=== PATIENT | male | born 1985 | race Caucasian/White ===

== ENCOUNTER 2018-06-01 01:42 | Emergency (ER) | payer BC ==
[2018-06-01 01:51] VITALS: TEMP 98.4
[2018-06-01] MEDS ORDERED: CYCLOBENZAPRINE 10 MG TAB PO STA (02:12)
[2018-06-01] MEDS ORDERED: IBUPROFEN 800 MG TAB PO STA (02:12)
--- NOTE | 2018-06-01 02:16 | ED ---
Lower Extremity Injury HPI - General Source: patient, RN notes reviewed Mode of arrival: ambulatory Limitations: no limitations <Jimbo Motta - Last Filed: 06/01/18 03:03> <Frida Chun - Last Filed: 06/01/18 23:04> - General Chief Complaint: Extremity Injury, Lower Stated Complaint: Rt Hip Pain Time Seen by Provider: 06/01/18 02:03 - History of Present Illness Initial Comments: 33-year-old male presents emergency Department chief complaint of right hip, groin pain. Patient states that it started last 24 hours she states initially felt like he had a cramp in his groin and states that it seemed to tighten up. Patient states that has progressively gotten worse she states that taking Excedrin and other [id number] pain relievers and did help but states that it worsened after he had been working all day and sat in the vehicle and states that with any movement especially flexion of the hip increases the pain. He states even laying flat or bending forward he feels discomfort. Patient denies any leg swelling, dramatic injury. He did admit that he had a right ankle injury and was diagnosed ligamentous injury. Patient denies any calf pain, abdominal pain, dysuria, hematuria, nausea vomiting. (Jimbo Motta) - Related Data Home Medications Medication Instructions Recorded Confirmed Dextroamphetamine/Amphetamine 30 mg PO DAILY 06/01/18 06/01/18 [Adderall] Previous Rx's Medication Instructions Recorded Cyclobenzaprine [Flexeril] 10 mg PO TID PRN #15 tab 06/01/18 Ibuprofen [Motrin] 600 mg PO Q8HR PRN #30 tab 06/01/18 Allergies Allergy/AdvReac Type Severity Reaction Status Date / Time levofloxacin [From Levaquin] Allergy Rash/Hives Verified 06/01/18 01:52 Review of Systems ROS Other: All systems not noted in ROS Statement are negative. <Jimbo Motta - Last Filed: 06/01/18 03:03> ROS Other: All systems not noted in ROS Statement are negative. <Frida Chun - Last Filed: 06/01/18 23:04> ROS Statement: Those systems with pertinent positive or pertinent negative responses have been documented in the HPI. Past Medical History Past Medical History: No Reported History History of Any Multi-Drug Resistant Organisms: None Reported Past Surgical History: No Surgical Hx Reported Past Psychological History: ADD/ADHD Smoking Status: Current every day smoker Past Alcohol Use History: Occasional Past Drug Use History: None Reported <Jimbo Motta - Last Filed: 06/01/18 03:03> General Exam Limitations: no limitations General appearance: alert, in no apparent distress Neck exam: Present: normal inspection. Absent: tenderness, meningismus, lymphadenopathy Respiratory exam: Present: normal lung sounds bilaterally. Absent: respiratory distress, wheezes, rales, rhonchi, stridor Cardiovascular Exam: Present: regular rate, normal rhythm, normal heart sounds. Absent: systolic murmur, diastolic murmur, rubs, gallop, clicks GI/Abdominal exam: Present: soft, normal bowel sounds. Absent: distended, tenderness, guarding, rebound, rigid Extremities exam: Present: other (Pain with right hip flexion, range of motion of the right hip right leg neurovascular intact, there is no erythema no rashes no tenderness below the right hip.) Skin exam: Present: warm, dry, intact, normal color. Absent: rash <Jimbo Motta - Last Filed: 06/01/18 03:03> Vital Signs 06/01/18 06/01/18 01:46 03:23 Temperature 98.4 F Pulse Rate 109 H 96 Respiratory 20 16 Rate Blood Pressure 129/71 114/60 O2 Sat by Pulse 99 96 Oximetry Medical Decision Making <Jimbo Motta - Last Filed: 06/01/18 03:03> <Frida Chun - Last Filed: 06/01/18 23:04> - Medical Decision Making 33-year-old male presents emergency Department chief complaint of right hip pain. Patient's pain is an anterior hip region consistent with a hip flexor injury. Patient did have x-rays which is negative for acute abnormality. Patient is neurovascular intact. Patient is advised to do gentle stretches, apply heat and ice and take medications as directed return parameters were discussed. (Jimbo Motta) I personally saw and examined the patient. I reviewed and agree with the mid- level provider findings including all diagnostic interpretations and treatment plans as written unless otherwise stated. I was present for pink portions of any procedures performed. (Frida Chun) Disposition Is patient prescribed a controlled substance at d/c from ED?: No Time of Disposition: :05 <Jimbo Motta M - Last Filed: 06/01/18 03:03> <Frida Chun P - Last Filed: 06/01/18 23:04> Clinical Impression: Strain of flexor muscle of right hip Disposition: HOME SELF-CARE Condition: Stable Instructions: Hip Sprain (ED) Additional Instructions: Please return to the Emergency Department if symptoms worsen or any other concerns. Prescriptions: Cyclobenzaprine [Flexeril] 10 mg PO TID PRN #15 tab PRN Reason: Muscle Spasm Ibuprofen [Motrin] 600 mg PO Q8HR PRN #30 tab PRN Reason: Pain Referrals: Stanford Yu DO [Primary Care Provider] - 1-2 days Raj Mariscal DO [Doctor of Osteopathic Medicine] - 1-2 days
--- NOTE | 2018-06-01 02:43 | XR ---
EXAMINATION TYPE: XR Hip RT and AP Pelvis DATE OF EXAM: 06/01/2018 COMPARISON: NONE HISTORY: Hip pain TECHNIQUE: A single AP view of the pelvis is obtained. Two views of the right hip are obtained. FINDINGS: The pelvic ring is intact. Proximal femurs and hip joints are intact. There is no sign of h ip dysplasia. Hip joint spaces are normal. Sacroiliac joints appear normal. IMPRESSION: Negative pelvis and right hip exam.
[2018-06-01] MEDS ORDERED: ACET/COD 300 MG/30 MG STARTER PACK 6 TAB BTL PO STA (03:05)
[2018-06-01 03:24] VITALS: BP 114/60; PULSE 96; RESP 16
== END 2018-06-01 03:29 | disposition home or self-care (01) ==
LOC: EC 01:42
DX: S76.011A Strain of muscle, fascia and tendon of right hip, initial encounter (principal); F90.9 Attention-deficit hyperactivity disorder, unspecified type; F17.200 Nicotine dependence, unspecified, uncomplicated; Z79.899 Other long term (current) drug therapy; Z88.1 Allergy status to other antibiotic agents; X50.1XXA Overexertion from prolonged static or awkward postures, initial encounter
CPT/HCPCS: 73502; 99283

== ENCOUNTER 2022-06-12 07:13 | Emergency (ER) | payer BC, OTHER ==
[2022-06-12 07:25] VITALS: TEMP 98.2
[2022-06-12] MEDS ORDERED: KETOROLAC 15 MG/ML 1 ML VIAL IM STA (07:32)
[2022-06-12] MEDS ORDERED: ACETAMINOPHEN TAB 500 MG TAB PO STA (07:35)
--- NOTE | 2022-06-12 07:39 | ED ---
Upper Extremity HPI - General Chief Complaint: Extremity Injury, Upper Stated Complaint: lt hand injury Time Seen by Provider: 06/12/22 07:29 Source: patient, RN notes reviewed, old records reviewed Mode of arrival: ambulatory Limitations: no limitations - History of Present Illness Initial Comments: Well-appearing 37-year-old male presents to the emergency room with complaints of left thumb pain. Patient states started last night, worse when he woke up and is now having increased pain with movement. Denies any injury. He is right hand dominant. States he did have a fracture of the growth plate in that hand in the past. Denies any fevers. Did not take any Tylenol or Motrin prior to arrival. MD Complaint: Injury to:: left, finger (thumb thenar surface) -: days(s) (1) Handedness: right Severity scale (1-10): 8 Improves With: immobilization Worsens With: movement of extremity Associated Symptoms: denies other symptoms - Related Data Home Medications Medication Instructions Recorded Confirmed Dextroamphetamine/Amphetamine 30 mg PO DAILY 06/01/18 06/01/18 [Adderall] Previous Rx's Medication Instructions Recorded Cyclobenzaprine [Flexeril] 10 mg PO TID PRN #15 tab 06/01/18 Ibuprofen [Motrin] 600 mg PO Q8HR PRN #30 tab 06/01/18 Ibuprofen [Motrin] 800 mg PO Q6HR #30 tab 06/12/22 Allergies Allergy/AdvReac Type Severity Reaction Status Date / Time levofloxacin [From Levaquin] Allergy Rash/Hives Verified 06/12/22 07:25 Review of Systems ROS Statement: Those systems with pertinent positive or pertinent negative responses have been documented in the HPI. ROS Other: All systems not noted in ROS Statement are negative. Past Medical History Past Medical History: No Reported History History of Any Multi-Drug Resistant Organisms: None Reported Past Surgical History: No Surgical Hx Reported Past Psychological History: ADD/ADHD Smoking Status: Current every day smoker Past Alcohol Use History: Occasional Past Drug Use History: None Reported General Exam Limitations: no limitations General appearance: alert, in no apparent distress Head exam: Present: atraumatic Respiratory exam: Absent: respiratory distress, accessory muscle use Cardiovascular Exam: Present: regular rate Left Hand Wrist exam: Present: tenderness, swelling. Absent: abrasion, laceration, ecchymosis, deformity, crepitus, dislocation, erythema, amputation, nail avulsion Neuro motor exam: Present: thumb IP flexion intact, thumb adduction intact (Patient complains of pain with flexion and abduction; difficulty touching thumb to fourth and fifth digits), fingers 2-5 abduction intact Vascular: Present: normal capillary refill, radial pulse. Absent: vascular compromise Neurological exam: Present: alert, oriented X3, normal gait Psychiatric exam: Present: normal affect, normal mood Skin exam: Present: warm, dry, normal color. Absent: cyanosis, diaphoretic, petechiae, pallor Course Vital Signs 06/12/22 06/12/22 07:23 08:54 Temperature 98.2 F Pulse Rate 93 90 Respiratory 20 15 Rate Blood Pressure 120/56 128/76 O2 Sat by Pulse 99 100 Oximetry Medical Decision Making - Medical Decision Making Patient texting on phone upon arrival to the emergency room with both thumbs. X-ray shows no fracture or dislocation. Joint spaces are within normal limits. Overlying soft tissue unremarkable. Patient is right hand dominant. Left thumb pain with flexion and palpation of the thenar surface. Patient denies any trauma. There is no sign of erythema or bruising . This is likely a thumb strain from repetitive use. He was instructed to take Tylenol and Motrin for pain, ice and immobilize thumb for the next 48 hours. Luis wrap was provided. Instructed to follow-up with his primary care doctor within the next week for continuation of care Case discussed with Dr. Quarles. Disposition Clinical Impression: Strain of thumb, left Disposition: HOME SELF-CARE Condition: Good Additional Instructions: Rest thumb for next 48 hours. Luis wrap and elevate hand above your heart to decrease any swelling. Tylenol and or Motrin as needed for pain. Follow-up with your primary care doctor within the next week. Return if any new or concerning symptoms. Prescriptions: Ibuprofen [Motrin] 800 mg PO Q6HR #30 tab Is patient prescribed a controlled substance at d/c from ED?: No Referrals: Stanford Yu DO [Primary Care Provider] - 1-2 days Time of Disposition: 08:29
--- NOTE | 2022-06-12 08:08 | XR ---
EXAMINATION TYPE: XR hand limited LT DATE OF EXAM: 06/12/2022 CLINICAL HISTORY: pain TECHNIQUE: Frontal, lateral images of the left hand are obtained. COMPARISON: None. FINDINGS: There is no acute fracture/dislocation evident. The joint spaces appear within normal limi ts. The overlying soft tissue appears unremarkable. IMPRESSION: There is no acute fracture or dislocation. ICD 10 NO FRACTURE, INITIAL EVALUATION
[2022-06-12 08:55] VITALS: BP 128/76; PULSE 90; RESP 15
== END 2022-06-12 08:56 | disposition home or self-care (01) ==
LOC: EC 07:13
DX: S63.602A Unspecified sprain of left thumb, initial encounter (principal); F17.200 Nicotine dependence, unspecified, uncomplicated; Z88.1 Allergy status to other antibiotic agents; X58.XXXA Exposure to other specified factors, initial encounter
CPT/HCPCS: 73120; 99283; 96372; J1885

== ENCOUNTER 2024-10-10 09:53 | Emergency (ER) | payer OTHER ==
--- NOTE | 2024-10-10 10:10 | ED ---
Chest Pain HPI - General Chief Complaint: Chest Pain Stated Complaint: [facility]-Chest pain,SOB Time Seen by Provider: 10/10/24 10:02 Source: patient, RN notes reviewed Mode of arrival: ambulatory Limitations: no limitations - History of Present Illness Initial Comments: This is a 39-year-old male presenting with sudden onset of chest pain x 30 minutes ago. 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 Patient states symptoms resolved spontaneously 1 to 2 minutes later with no ongoing pain, dyspnea or dizziness. Patient denies cardiac history, asthma or history of hypertension/hypercholesterolemia. Patient is a current smoker with BMI of 35.0. MD Complaint: chest pain Onset/Timin -: minutes(s) Onset: during exertion Pain Location: left chest Pain Radiation: LUE, back Quality: tightness Consistency: now resolved Improves With: rest Anginal Symptoms: dyspnea Treatments Prior to Arrival: none - Related Data Home Medications Medication Instructions Recorded Confirmed Dextroamphetamine/Amphetamine 20 mg PO BID 10/10/24 10/10/24 [Adderall] Allergies Allergy/AdvReac Type Severity Reaction Status Date / Time levofloxacin [From Levaquin] Allergy Rash/Hives Verified 10/10/24 11:58 Review of Systems ROS Statement: Those systems with pertinent positive or pertinent negative responses have been documented in the HPI. ROS Other: All systems not noted in ROS Statement are negative. Past Medical History Past Medical History: No Reported History History of Any Multi-Drug Resistant Organisms: None Reported Past Surgical History: No Surgical Hx Reported Past Psychological History: ADD/ADHD Smoking Status: Former smoker Past Alcohol Use History: Occasional Past Drug Use History: None Reported General Exam Limitations: no limitations General appearance: alert, in no apparent distress Head exam: Present: atraumatic, normocephalic, normal inspection Eye exam: Present: normal appearance, PERRL, EOMI. Absent: scleral icterus, conjunctival injection, periorbital swelling ENT exam: Present: normal exam, mucous membranes moist Neck exam: Present: normal inspection. Absent: tenderness, meningismus, lymphadenopathy Respiratory exam: Present: wheezes, prolonged expiratory. Absent: respiratory distress, rales, rhonchi, stridor Cardiovascular Exam: Present: regular rate, normal rhythm, normal heart sounds. Absent: systolic murmur, diastolic murmur, rubs, gallop, clicks GI/Abdominal exam: Present: soft, normal bowel sounds. Absent: distended, tenderness, guarding, rebound, rigid Extremities exam: Present: normal inspection, full ROM, normal capillary refill. Absent: tenderness, pedal edema, joint swelling, calf tenderness Back exam: Present: normal inspection Neurological exam: Present: alert, oriented X3, CN II-XII intact Psychiatric exam: Present: normal affect, normal mood Skin exam: Present: warm, dry, intact, normal color. Absent: rash Course Vital Signs 10/10/24 10/10/24 10/10/24 09:54 10:12 11:00 Temperature 97.6 F Pulse Rate 94 90 79 Respiratory 20 18 18 Rate Blood Pressure 149/86 140/90 132/77 O2 Sat by Pulse 97 95 98 Oximetry 10/10/24 10/10/24 10/10/24 11:16 11:24 11:30 Temperature Pulse Rate 78 80 77 Respiratory 18 Rate Blood Pressure 120/68 O2 Sat by Pulse 96 Oximetry 10/10/24 10/10/24 10/10/24 12:00 12:30 13:00 Temperature Pulse Rate 83 85 89 Respiratory 17 16 18 Rate Blood Pressure 126/70 125/75 120/73 O2 Sat by Pulse 97 98 97 Oximetry Chest Pain MDM - MDM Was pt. sent in by a medical professional or institution (LEANDRO Ca, CLERK RATING, urgent care, hospital, or prison...) When possible be specific @ -[No] Did you speak to anyone other than the patient for history (EMS, parent, family, police, friend...)? What history was obtained from this source @ -[No] Did you review nursing and triage notes (agree or disagree)? Why? @ -[I reviewed and agree with nursing and triage notes] Were old charts reviewed (outside hosp., previous admission, EMS record, old EKG, old radiological studies, urgent care reports/EKG's, prison records)? Report findings @ -[No old charts were reviewed] Differential Diagnosis (chest pain, altered mental status, abdominal pain women, abdominal pain men, vaginal bleeding, weakness, fever, dyspnea, syncope, headache, dizziness, GI bleed, back pain, seizure, CVA, palpatations, mental health, musculoskeletal)? @ -Differential Chest Pain: Stable Angina, Unstable Angina, STEMI, NSTEMI Aortic Dissection, Pneumothorax, Musculoskeletal, Esophageal Spasm GERD, Cholecystitis, Pancreatitis, Zoster, this is not meant to be an all-inclusive list. EKG interpreted by me (3pts min.). @ -Sinus rhythm without ST deviation or T wave inversion. Ventricular rate 89 bpm, JAMIL 147 ms, QRS duration 97 ms, QTc 385 ms. X-rays interpreted by me (1pt min.). @ -CXR shows no acute cardiopulmonary process CT interpreted by me (1pt min.). @ -[None done] U/S interpreted by me (1pt. min.). @ -[None done] What testing was considered but not performed or refused? (CT, X-rays, U/S, labs)? Why? @ -[None] What meds were considered but not given or refused? Why? @ -[None] Did you discuss the management of the patient with other professionals (professionals i.e. , PA, CLERK RATING, lab, RT, psych nurse, social contact worker, burner shaft, teacher, airframe technical officer, field nurse case manager)? Give summary @ -[No] Was smoking cessation discussed for >3mins.? @ -[No] Was critical care preformed (if so, how long)? @ -[No] Were there social determinants of health that impacted care today? How? (Homelessness, low income, unemployed, alcoholism, drug addiction, transportation, low edu. Level, literacy, decrease access to med. care, retirement, rehab)? @ -[No] Was there de-escalation of care discussed even if they declined (Discuss DNR or withdrawal of care, Hospice)? DNR status @ -[No] What co-morbidities impacted this encounter? (DM, HTN, Smoking, COPD, CAD, Cancer, CVA, ARF, Chemo, Hep., AIDS, mental health diagnosis, sleep apnea, morbid obesity)? @ -[None] Was patient admitted / discharged? Hospital course, mention meds given and route, prescriptions, significant lab abnormalities, going to OR and other pertinent info. @ -[hospital course] Undiagnosed new problem with uncertain prognosis? @ -[No] Drug Therapy requiring intensive monitoring for toxicity (Heparin, Nitro, Insulin, Cardizem)? @ -[No] Were any procedures done? @ -[No] Diagnosis/symptom? @ -[default] Acute, or Chronic, or Acute on Chronic? @ -Acute Uncomplicated (without systemic symptoms) or Complicated (systemic symptoms)? @ -Complicated Side effects of treatment? @ -[No] Exacerbation, Progression, or Severe Exacerbation? @ -[No] Poses a threat to life or bodily function? How? (Chest pain, [place], [place], pneumonia, PE, COPD, DKA, ARF, appy, cholecystitis, CVA, Diverticulitis, Homicidal, Suicidal, threat to staff... and all critical care pts) @ -[No] Disposition Clinical Impression: Stable angina pectoris Disposition: HOME SELF-CARE Condition: Good Instructions (If sedation given, give patient instructions): Chest Pain (ED) Additional Instructions: Follow-up with PCP in the next 24 to 48 hours for further cardiac workup Is patient prescribed a controlled substance at d/c from ED?: No Referrals: Deja Osorio MD [Primary Care Provider] - 1-2 days Time of Disposition: 14:11
[2024-10-10 10:34] LABS: Basophils # (A) 0.1 k/uL (0-0.2); Basophils % (A) 1 %; Eosinophils # (A) 0.3 k/uL (0-0.7); Eosinophils % (A) 3 %; HCT 45.8 % (39.0-53.0); HGB 15.7 gm/dL (13.0-17.5); Lymphocytes # (A) 2.2 k/uL (1.0-4.8); Lymphocytes % (A) 25 %; MCH 29.4 pg (25.0-35.0); MCHC 34.2 g/dL (31.0-37.0); Mean Platelet Volume 8.6; Monocytes # (A) 0.5 k/uL (0-1.0); Monocytes % (A) 6 %; Neutrophils # (A) 5.4 k/uL (1.3-7.7); Neutrophils % (A) 63 %; Platelet Count 229 k/uL (150-450); RBC 5.33 m/uL (4.30-5.90); RDW 12.8 % (11.5-15.5); WBC 8.5 k/uL (3.8-10.6)
--- NOTE | 2024-10-10 10:36 | XR ---
EXAMINATION TYPE: XR chest 2V DATE OF EXAM: 10/10/2024 10:32 AM COMPARISON: None TECHNIQUE: XR chest 2V Frontal and lateral views of the chest. CLINICAL INDICATION:Male, 39 years old with history of Chest Pain; FINDINGS: Lungs/Pleura: There is no evidence of pleural effusion, focal consolidation, or pneumothorax. Pulmonary vascularity: Unremarkable. Heart/mediastinum: Cardiomediastinal silhouette is unremarkable. Musculoskeletal: No acute osseous pathology. IMPRESSION: No acute cardiopulmonary disease/process. [facility], , 10/10/2024 10:33 AM
[2024-10-10 10:47] LABS: ALT 35 U/L (4-49); AST 19 U/L (17-59); African American GFR (CKD) >90 (>60 ml/min/1.73 sqM); Albumin 4.3 g/dL (3.5-5.0); Alkaline Phosphatase 63 U/L (38-126); Anion Gap 10 mmol/L; Blood Urea Nitrogen 14 mg/dL (9-20); Calcium 9.5 mg/dL (8.4-10.2); Carbon Dioxide 26 mmol/L (22-30); Chloride 104 mmol/L (98-107); Glucose 94 mg/dL (74-99); Non-African American GFR(CKD) >90 (>60 ml/min/1.73 sqM); Potassium 4.2 mmol/L (3.5-5.1); Sodium 140 mmol/L (137-145); Total Bilirubin 0.5 mg/dL (0.2-1.3); Total Protein 6.8 g/dL (6.3-8.2)
[2024-10-10 10:54] LABS: Partial Thromboplastin Time 27.8 sec (22.0-30.0); Prothrombin Time 10.7 sec (10.0-12.5)
[2024-10-10] MEDS: ASPIRIN 81 MG PO STA (11:12)
[2024-10-10] MEDS: IPRATROPIUM-ALBUTEROL 3 ML NEB INHALATION STA (11:14)
[2024-10-10 14:30] VITALS: BP 128/80; TEMP 98.1
[2024-10-10 14:34] VITALS: PULSE 80; RESP 16
== END 2024-10-10 14:34 | disposition home or self-care (01) ==
LOC: EC 09:53
DX: I20.81 Angina pectoris with coronary microvascular dysfunction (principal); Z87.891 Personal history of nicotine dependence; Z88.1 Allergy status to other antibiotic agents
CPT/HCPCS: 36415; 71046; 80053; 83735; 84484; 85025; 85379; 85610; 85730; 93005; 94640; 99285